=== PATIENT | female | born 1995 | race Caucasian/White ===

== ENCOUNTER 2016-12-04 08:42 | Emergency (ER) | payer OTHER ==
[~2016-12-04] VITALS: Ht 165.1 cm; Wt 81.6 kg
[~2016-12-04 08:42] MED LIST: FERRTAB2 PO; PREN1CAP7 PO; ZOLO50TA PO
[2016-12-04 09:41] LABS: BLOOD, URINE NEG (NEG); COMMENT (UR) CULT NOT INDICATED; CULTURE IF INDICATED CULT NOT INDICATED; GLUCOSE,URINE NEG (NEG); KETONE, URINE NEG (NEG); MUCUS URINE FEW /lpf (OCC); NITRITE,URINE NEG (NEG); SQUAMOUS EPITHELIAL CELL URINE <1 /hpf (0-5); URINE COLOR LIGHT-YELLOW (YELLW/STRAW)
--- NOTE | 2016-12-04 10:31 | PD ---
HPI Chief Complaint Nausea, vomiting, diarrhea Date Seen: December 04, 2016 Time Seen: 10:00 (Ada Quintanilla MD R2) Travel History International Travel<30 Days: No Contact w/Intl Traveler<30Days: No Known Affected Area: No (Ada Quintanilla MD R2) History of Present Illness HPI Pt is a 21 year old presenting at 34 weeks gestation due to nausea, vomiting and diarrhea. care is with Janice Valdivia. She reports hat she started to have diarrhea on Saturday, about 4 episodes per day. She has noticed bright red blood with wiping. Stools are light brown in color. She denies any recent travel, eating new foods, sick contacts. She attributes nausea to acid reflux. Denies any fevers or chills. Para: 1 : 2 (Ada Quintanilla MD R2) History Past Medical History Medical History: Denies Significant Hx (Ada Quintanilla MD R2) Obstetric History Obstetric History Primus E #1 Delivery via due to tachycardia (Ada Quintanilla MD R2) Past Surgical History Narrative Surgical 1 (Ada Quintanilla MD R2) Family History Family History: Negative (Ada Quintanilla MD R2) Social History Alcohol Use: No Tobacco Use: No Substance Abuse: No (Ada Quintanilla MD R2) Allergies-Medications (Allergen,Severity, Reaction): Coded Allergies: Flagyl (Verified Allergy, Severe, perfuse vomiting, 11/19/16) Home Meds Active Scripts Famotidine (Pepcid)20 Mg Tab20 Mg PO BID #60 TAB Ref 0 Prov:Ada Quintanilla MD R2 12/04/16 Multi-Vit/Iron-Folic Sdht-N83-Lmo C (Ferralet)90-1-0.012-120 mg Tab1 Tab PO DAILY #30 BOTTLE Ref 3 Prov:Patricia Briceño CNM [facility] 11/29/16 Sertraline (Zoloft)50 Mg Tab50 Mg PO DAILY #30 TAB Ref 5 Prov:Hina Sylvester 08/06/16 W/O Vit A W/ Fe Fumar (Citranatal [place])27-1-260 Mg Cap1 Cap PO DAILY #30 CAP Ref 11 Prov:Hina Sylvester 07/02/16 Review of Systems General / Constitutional: No: Fever HENT: No: Headaches Respiratory: No: Short of Breath Gastrointestinal: Nausea, Vomiting, Diarrhea, Abdominal Pain Genitourinary: No: Dysuria Skin: No Rash Psychiatric: No: Mood Disorder (Ada Quintanilla MD R2) Physical Exam Narrative GENERAL: Well-nourished, well-developed patient. SKIN: Warm and dry. HEAD: Normocephalic and atraumatic. EYES: No scleral icterus. No injection or drainage. ENT: No nasal drainage noted. Mucous membranes pink. Airway patent. NECK: Supple, trachea midline. No JVD. CARDIOVASCULAR: Regular rate and rhythm without murmurs, gallops, or rubs. RESPIRATORY: Breath sounds equal bilaterally. No accessory muscle use. ABDOMEN/GI: Abdomen soft, non-tender, bowel sounds present, no rebound, no guarding Gravid to 34 weeks size GENITOURINARY: External Genitalia: intact and normal in appearance Membranes: Intact Uterine Contractions: Absent External hemorrhoid about 2 cm in diameter. No rectal bleeding appreciated FHT's: Category: 1 Baseline: 130 Reactive: + Variability: Moderate Decels: Absent EXTREMITIES: No cyanosis or edema. BACK: Nontender without obvious deformity. No CVA tenderness. NEUROLOGICAL: Awake and alert. Motor and sensory grossly within normal limits. Five out of 5 muscle strength in all muscle groups. Normal speech. (Ada Quintanilla MD R2) Data Data Orders Vital Signs (Adult) .ON ADMISSION (12/04/16 09:14) ^ Labor Status (12/04/16 09:14) Urinalysis - C+S If Indicated (12/04/16 09:14) ^ Non Stress Test (12/04/16 09:14) ^ Hydration (12/04/16 09:14) Labs Laboratory Tests Test 12/04/16 09:15 Urine Color LIGHT-YELLOW Urine Turbidity CLEAR Urine pH 7.0 Urine Specific [place] 1.012 Urine Protein NEG Urine Glucose (UA) NEG Urine Ketones NEG Urine Occult Blood NEG Urine Nitrite NEG Urine Bilirubin NEG Urine Urobilinogen LESS THAN 2.0 Urine Leukocyte Esterase NEG Urine Squamous Epithelial <1 Cells Urine Mucus FEW Microscopic Urinalysis Comment CULT NOT INDICATED (Ada Quintanilla MD R2) MDM Medical Record Reviewed: Yes Interpretation(s) Pt is a 21 year old presenting at 34 weeks gestation due to nausea, vomiting and diarrhea. 1) IUP Category 1, reassuring UA with no signs of infection 2) Gastroenteritis Likely viral Pt encouraged to stay well hydrated and to take Imodium as needed for diarrhea Pt given prescription for Pepcid, electronically sent to pts pharmacy Follow up care for women as scheduled, earlier if symptoms persist and diarrhea does not resolve sdw Dr. Chi (Ada Quintanilla MD R2) Diagnosis Diagnosis: Primary Impression: Gastroenteritis Additional Impression: Normal Disposition: DISCHARGE HOME Condition: Stable Scripts Famotidine (Pepcid)20 Mg Tab20 Mg PO BID #60 TAB Ref 0 Prov:Ada Quintanilla MD R2 12/04/16 Collaborating MD Comments Agree with assessment and management. Patient will start pepcid for reflux symptoms. If diarrhea continued despite use of imodium patient will follow up with ob office for stool studies (Teagan Chi MD) Ada Quintanilla MD R2 December 04, 2016 10:31 Teagan Chi MD December 04, 2016 13:30
[2016-12-04] MEDS ORDERED: FAMO1TAB37 PO (10:49)
[2016-12-25] MEDS ORDERED: PROC2.5C RECTAL (15:46)
== END 2016-12-04 11:08 | disposition home or self-care (01) ==
LOC: HOBED 08:42
DX: O99.613 Diseases of the digestive system complicating pregnancy, third trimester (principal); K52.9 Noninfective gastroenteritis and colitis, unspecified; Z3A.34 34 weeks gestation of pregnancy
CPT/HCPCS: 81001; 99283

== ENCOUNTER 2016-12-22 09:37 | Emergency (ER) | payer OTHER ==
[~2016-12-22 09:37] MED LIST changes: +FAMO1TAB37 PO
--- NOTE | 2016-12-22 10:38 | PD ---
HPI Chief Complaint cramping Date Seen: Dec 22, 2016 Travel History International Travel<30 Days: No Contact w/Intl Traveler<30Days: No History of Present Illness HPI 21 yo @ 34w4d with ANDRE 01-29-2017. care with [facility]. with noted depression, currently on Zoloft. Patient presents today with c/o diarrhea x 2 this am and cramping. She reports 5-6 contractions in past hour. She currently denies nausea, vomiting and has been drinking fluids. She had not eaten this morning but does not have an appetite. She had a episode of gastroenteritis 2 weeks ago which resolved. No other complaints. She denies VB, LOF. +FM History Past Medical History Narrative Medical Depression Obstetric History Obstetric History for tachycardia/ pericardial effusion @ 35 weeks. resolved after delivery. pathology/placenta was normal. Past Surgical History Narrative Surgical Family History Family History: Negative Social History Alcohol Use: No Tobacco Use: No Substance Abuse: No Allergies-Medications (Allergen,Severity, Reaction): Coded Allergies: Flagyl (Verified Allergy, Severe, perfuse vomiting, 11/19/16) Home Meds Active Scripts Famotidine (Pepcid)20 Mg Tab20 Mg PO BID #60 TAB Ref 0 Prov:Ada Quintanilla MD R2 12/04/16 Multi-Vit/Iron-Folic Nvju-I22-Adc C (Ferralet)90-1-0.012-120 mg Tab1 Tab PO DAILY #30 BOTTLE Ref 3 Prov:Patricia Briceño CNM [facility] 11/29/16 Sertraline (Zoloft)50 Mg Tab50 Mg PO DAILY #30 TAB Ref 5 Prov:Hina Sylvester 08/06/16 W/O Vit A W/ Fe Fumar (Citranatal [place])27-1-260 Mg Cap1 Cap PO DAILY #30 CAP Ref 11 Prov:Hina SylvesterP 07/02/16 Review of Systems General / Constitutional: No: Fever, Chills Eyes: No: Blurred Vision, Pain HENT: No: Headaches, Lightheadedness Cardiovascular: No: Chest Pain or Discomfort, Palpitations Respiratory: No: Cough, Short of Breath Gastrointestinal: Diarrhea, Abdominal Pain, Changes in Bowel Habits, Loss of Appetite, No: Nausea, Vomiting, Indigestion Genitourinary: No: Urgency, Frequency, Dysuria, Vaginal Bleeding Musculoskeletal: No: Limited ROM, Weakness, Edema Skin: No Rash, No Itching, No Lesions Neurologic: No: Focal Abnormalities, Coordination Problem Physical Exam Vital Signs Date Time Temp Pulse Resp B/P Pulse Ox O2 Delivery O2 Flow Rate FiO2 12/22/16 12:36 92 126/68 12/22/16 12:15 66 120/53 Narrative GENERAL: Well-nourished, well-developed patient. SKIN: Warm and dry. HEAD: Normocephalic and atraumatic. EYES: No scleral icterus. No injection or drainage. ENT: No nasal drainage noted. Mucous membranes pink. Airway patent. NECK: trachea midline. No JVD. CARDIOVASCULAR: Regular rate. VSS. RESPIRATORY: No accessory muscle use. ABDOMEN/GI: Abdomen soft, non-tender, no rebound, no guarding Gravid Patient Discomfort with UC - Uterine contraction palpated mild, uterus non- tender TOCO: Occasional UC GENITOURINARY: External Genitalia: intact and normal in appearance SVE: closed/thick/high FHT's: Category: I Baseline: 120 Reactive: +accelerations Variability: mod Decels: [-] EXTREMITIES: No cyanosis or edema. BACK: Nontender without obvious deformity. Normal ROM NEUROLOGICAL: Awake and alert. Motor and sensory grossly within normal limits. Normal speech. Repeat exam: CAT I FHT VSS, afebrile TOCO: irritability SVE closed/thick/high no change Data Data Vital Signs Reviewed: Yes Orders Vital Signs (Adult) .ON ADMISSION (12/22/16 10:29) ^ Labor Status (12/22/16 10:29) Urinalysis - C+S If Indicated (12/22/16 10:29) ^ Non Stress Test (12/22/16 10:29) ^ Hydration (12/22/16 10:29) Labs Laboratory Tests Test 12/22/16 09:55 Urine Color YELLOW (YELLW/STRAW) Urine Turbidity CLEAR (CLEAR) Urine pH 6.5 (5.0-8.5) Urine Specific [place] 1.014 (1.002-1.035) Urine Protein TRACE mg/dL (NEG-TRACE) Urine Glucose (UA) NEG mg/dL (NEG) Urine Ketones TRACE mg/dL (NEG) Urine Occult Blood NEG (NEG) Urine Nitrite NEG (NEG) Urine Bilirubin NEG (NEG) Urine Urobilinogen LESS THAN 2.0 MG/DL (LESS THAN 2.0) Urine Leukocyte Esterase NEG (NEG) Urine RBC LESS THAN 1 /hpf (0-3) Urine WBC 1 /hpf (0-5) Urine Squamous Epithelial 1 /hpf (0-5) Cells Urine Bacteria RARE /hpf (NONE) Urine Mucus FEW /lpf (OCC) Microscopic Urinalysis Comment CULT NOT INDICATED MDM Narrative Course / MDM 34 weeks Diarrhea with mild dehydration Irregular UC without cervical change or labor FHT CAT I, prolonged monitoring UA noting ketones, no evidence of infection IV and oral hydration Terbutaline given for painful but irregular UC/irritability x 2 Plan D/c home Precautions given for UC Pelvic and GI rest Reviewed bland diet and oral hydration Vistaril given for rest this afternoon Has f/u JORGE on Saturday Diagnosis Diagnosis: Primary Impression: , GI problems Qualified Code: O26.893 - , GI problems, third trimester Additional Impressions: Diarrhea Qualified Code: R19.7 - Diarrhea, unspecified type Dehydration uterine contractions in third trimester, antepartum Disposition: DISCHARGE HOME Condition: Good Ashlee Christensen MD Dec 22, 2016 10:38
[2016-12-22 10:40] LABS: BACTERIA, URINE RARE /hpf; BLOOD, URINE NEG (NEG); COMMENT (UR) CULT NOT INDICATED; CULTURE IF INDICATED CULT NOT INDICATED; GLUCOSE,URINE NEG (NEG); KETONE, URINE TRACE mg/dL (NEG); MUCUS URINE FEW /lpf (OCC); NITRITE,URINE NEG (NEG); PH, URINE 6.5 (5.0-8.5); SQUAMOUS EPITHELIAL CELL URINE 1 /hpf (0-5); URINE COLOR YELLOW (YELLW/STRAW)
[2016-12-22] MEDS ORDERED: LACTATED RINGER'S 1000 ML INJ 1,000 ML IV ONE (11:30)
[2016-12-22] MEDS ORDERED: TERBUTALINE INJ 1 MG/ML AMP ONE (12:13)
[2016-12-22 12:15] VITALS: BP 120/53; PULSE 66
[2016-12-22] MEDS ORDERED: TERBUTALINE INJ 1 MG/ML AMP SQ ONE ×2 (12:15→12:45)
[2016-12-22 12:36] VITALS: BP 126/68; PULSE 92
[2016-12-25] MEDS ORDERED: PROC2.5C RECTAL (15:46)
== END 2016-12-22 13:30 | disposition home or self-care (01) ==
LOC: HOBED 09:37
DX: R19.7 Diarrhea, unspecified (principal); O26.893 Other specified pregnancy related conditions, third trimester; E86.0 Dehydration; Z3A.34 34 weeks gestation of pregnancy
CPT/HCPCS: 59025; 81001; 96372; 99284; J3105; J7120

== ENCOUNTER 2017-01-21 09:20 | Inpatient (IN) | payer OTHER ==
[~2017-01-21] VITALS: Ht 162.6 cm; Wt 84.0 kg
[~2017-01-21 09:20] MED LIST changes: +PROC2.5C RECTAL
[2017-01-23] VITALS (17 sets, daily range): BP systolic 97–118; BP diastolic 50–67; PULSE 53–90; RESP 16–19; TEMP 97.5–98.2; O2SAT 96–99
[2017-01-23] MEDS ORDERED: SODIUM CHLORIDE 0.9% FLUSH 5 ML FLUSH ONE (09:37)
[2017-01-23] MEDS ORDERED: LACTATED RINGER'S 1000 ML INJ 1,000 ML IV ONE (10:02)
[2017-01-23 10:29] LABS: AUTOMATED NEUTROPHIL # 6.5 TH/MM3 (1.8-7.7); BASOPHIL # 0.1 TH/MM3 (0-0.2); BASOPHIL % 0.8 % (0.0-2.0); EOSINOPHIL # 0.1 TH/MM3 (0-0.4); EOSINOPHIL % 0.8 % (0.0-4.0); HEMO FLAGS DIFF FINAL; LYMPH % 14.3 % (9.0-44.0); LYMPHOCYTE # 1.2 TH/MM3 (1.0-4.8); MEAN CELL VOLUME 71.5 FL (80.0-100.0); MEAN CORPUSCULAR HEMOGLOBIN 22.5 PG (27.0-34.0); MEAN CORPUSCULAR HGB CONC 31.5 % (32.0-36.0); MONO % 9.1 % (0.0-8.0); PLATELET COUNT 181 TH/MM3 (150-450); RED CELL DISTRIBUTION WIDTH 17.5 % (11.6-17.2); WHITE BLOOD COUNT 8.7 TH/MM3 (4.0-11.0)
[2017-01-23] MEDS ORDERED: LACTATED RINGER'S 1000 ML INJ 1,000 ML IV SCH ×2 (10:32→17:15)
[2017-01-23 10:36] LABS: BACTERIA, URINE OCC /hpf; BLOOD, URINE NEG (NEG); GLUCOSE,URINE NEG (NEG); HYALINE CAST, URINE 1 /lpf (RARE); KETONE, URINE NEG (NEG); NITRITE,URINE NEG (NEG); SQUAMOUS EPITHELIAL CELL URINE 1 /hpf (0-5); URINE COLOR LIGHT-YELLOW (YELLW/STRAW)
[2017-01-23 10:40] LABS: COMMENT (UR) CULT NOT INDICATED; CULTURE IF INDICATED CULT NOT INDICATED
[2017-01-23] MEDS ORDERED: OXYTOCIN 10 UNIT/ML AMP ONE (10:40)
[2017-01-23] MEDS ORDERED: IRONTAB5 PO (10:46)
--- NOTE | 2017-01-23 10:49 | HHI.HP ---
HPI Chief Complaint Repeat C/S Date Seen: Jan 23, 2017 Time Seen: 10:45 (Walt Queen MD R1) Travel History International Travel<30 Days: No Contact w/Intl Traveler<30Days: No (Walt Queen MD R1) History of Present Illness HPI 21-year-old at 39 weeks gestation presenting for repeat . She currently has no somatic concerns. Denies chest pain, shortness of breath, abdominal pain, vaginal bleeding, leakage of fluid, contractions. (Walt Queen MD R1) History Past Medical History Medical History: Denies Significant Hx (Walt Queen MD R1) Obstetric History Obstetric History First baby delivered by for tachycardia (Walt Queen MD R1) Past Surgical History Narrative Surgical No surgeries other than previous (Walt Queen MD R1) Family History Family History: Negative (Walt Queen MD R1) Social History Alcohol Use: No Tobacco Use: No Substance Abuse: No (Walt Queen MD R1) Allergies-Medications (Allergen,Severity, Reaction): Coded Allergies: Flagyl (Verified Allergy, Severe, perfuse vomiting, AFFECTS GALLBLADDER, INTESTINES AND LIVER, 01/23/17) Home Meds Active Scripts Multi-Vit/Iron-Folic Zmdn-U47-Wog C (Ferralet)90-1-0.012-120 mg Tab1 Tab PO DAILY #30 BOTTLE Ref 3 Prov:Patricia Briceño CNM [facility] 11/29/16 Reported Medications [Iron] No Conflict Check1 Tab PO DAILY 01/23/17 Discontinued Scripts Hydrocortisone Rectal 2.5% (Proctosol Hc 2.5%)2.5% Cream1 Applic RECTAL BID PRN (PAIN/INFLAMMATION) #1 TUBE Ref 2 Prov:Hina Sylvester 12/25/16 Famotidine (Pepcid)20 Mg Tab20 Mg PO BID #60 TAB Ref 0 Prov:Ada Quintanilla MD R2 12/04/16 Sertraline (Zoloft)50 Mg Tab50 Mg PO DAILY #30 TAB Ref 5 Prov:Hina Sylvester 08/06/16 W/O Vit A W/ Fe Fumar (Citranatal [place])27-1-260 Mg Cap1 Cap PO DAILY #30 CAP Ref 11 Prov:Hina SylvesterLuli LINING FINISHER 07/02/16 Review of Systems Except as stated in HPI: all other systems reviewed are Neg (Walt Queen MD R1) Physical Exam Vital Signs Date Time Temp Pulse Resp B/P Pulse Ox O2 Delivery O2 Flow Rate FiO2 01/23/17 10:35 74 01/23/17 10:30 71 01/23/17 10:00 97.6 01/23/17 10:00 19 01/23/17 09:55 81 01/23/17 09:54 84 118/62 01/23/17 09:50 81 01/23/17 09:45 82 Narrative GENERAL: Well-nourished, well-developed patient. SKIN: Warm and dry. HEAD: Normocephalic and atraumatic. EYES: No scleral icterus. No injection or drainage. ENT: No nasal drainage noted. Mucous membranes pink. Airway patent. NECK: Supple, trachea midline. No JVD. CARDIOVASCULAR: Regular rate and rhythm without murmurs, gallops, or rubs. RESPIRATORY: Breath sounds equal bilaterally. No accessory muscle use. BREASTS: Bilateral exam showed no masses , no retractions, no nipple discharge. ABDOMEN/GI: Abdomen soft, non-tender, bowel sounds present, no rebound, no guarding GENITOURINARY: Exam deferred FHT's: Category: 1 Baseline: 120 Reactive: Y Variability: moderate Decels: none EXTREMITIES: No cyanosis or edema. BACK: Nontender without obvious deformity. No CVA tenderness. NEUROLOGICAL: Awake and alert. Motor and sensory grossly within normal limits. Normal speech. (Walt Queen MD R1) Data Data Orders Sodium Chloride 0.9% Flush (Ns Flush) (01/23/17 09:37) Admit To Inpatient (01/23/17 ) Vital Signs (Adult) .ON ADMISSION (01/23/17 10:02) Activity Oob Ad Yolande (01/23/17 10:02) Heart (01/23/17 10:02) Urinary Catheter Management MIMA.Q8H (01/23/17 10:02) ^ Preps (01/23/17 10:02) Scd / Jose De Jesus / Foot Pump MIMA.QSHIFT (01/23/17 10:02) ^ Ultrasound For Locatio (01/23/17 10:02) Diet Npo (01/23/17 Lunch) Lactated Ringer's 1000 Ml Inj (Lr 1000 M (01/23/17 10:02) Lactated Ringer's 1000 Ml Inj (Lr 1000 M (01/23/17 10:32) Cefazolin 2 Gm Premix (Ancef 2 Gm Premix (01/23/17 11:15) Citric Acid-Sodium Citrate Liq (Bicitra (01/23/17 11:45) Type And Screen (01/23/17 10:02) Complete Blood Count With Diff (01/23/17 10:02) Urinalysis - C+S If Indicated (01/23/17 10:02) Inpatient Certification (01/23/17 ) Specimen To Be Collected PRN (01/23/17 10:02) Oxytocin Inj (Pitocin Inj) (01/23/17 10:40) Labs Laboratory Tests Test 01/23/17 09:55 White Blood Count 8.7 Red Blood Count 4.20 Hemoglobin 9.4 Hematocrit 30.0 Mean Corpuscular Volume 71.5 Mean Corpuscular Hemoglobin 22.5 Mean Corpuscular Hemoglobin 31.5 Concent Red Cell Distribution Width 17.5 Platelet Count 181 Mean Platelet Volume 9.4 Neutrophils (%) (Auto) 75.0 Lymphocytes (%) (Auto) 14.3 Monocytes (%) (Auto) 9.1 Eosinophils (%) (Auto) 0.8 Basophils (%) (Auto) 0.8 Neutrophils # (Auto) 6.5 Lymphocytes # (Auto) 1.2 Monocytes # (Auto) 0.8 Eosinophils # (Auto) 0.1 Basophils # (Auto) 0.1 CBC Comment DIFF FINAL Differential Comment Urine Color LIGHT-YELLOW Urine Turbidity CLEAR Urine pH 7.0 Urine Specific [place] 1.011 Urine Protein NEG Urine Glucose (UA) NEG Urine Ketones NEG Urine Occult Blood NEG Urine Nitrite NEG Urine Bilirubin NEG Urine Urobilinogen LESS THAN 2.0 Urine Leukocyte Esterase SMALL Urine RBC LESS THAN 1 Urine WBC LESS THAN 1 Urine Squamous Epithelial 1 Cells Urine Bacteria OCC Urine Hyaline Casts 1 Microscopic Urinalysis Comment CULT NOT INDICATED (Walt Queen MD R1) Assessment/Plan Assessment and Plan 21-year-old at 39 weeks presenting for repeat #1 IUP Category 1 tracing, reassuring - monitoring prior to delivery #2 repeat GBS positive, membranes intact - Ancef 2 g prior to surgery - Routine preoperative care dw Dr. Ram (Walt Queen MD R1) Attending Attestation The exam, history, and the medical decision-making described in the above note were completed with the assistance of the resident provider. I reviewed and agree with the findings presented. I attest that I had a [id number] encounter with the patient on the same day, and personally performed and documented my assessment and findings in the medical record. Risks of repeat were reviewed with patient in detail including but not limited to pain, bleeding, infection, injury to blood vessels, nerves, bladder, ureters, bowel. All questions were answered, and consent forms were signed. ( Bailey Ram MD) Walt Queen MD R1 Jan 23, 2017 10:49 Bailey Ram MD Jan 23, 2017 13:50
[2017-01-23] MEDS ORDERED: EPIDURAL-DO NOT ADMINISTER ANTICOAGULANTS PRN (11:05)
[2017-01-23] MEDS ORDERED: EPIDURAL-NALOXONE HCL 0.4 MG/ML AMP IV PRN (11:05)
[2017-01-23] MEDS ORDERED: EPIDURAL-DIPHENHYDRAMINE HCL 50 MG CAP PO PRN (11:05)
[2017-01-23] MEDS ORDERED: EPIDURAL-DIPHENHYDRAMINE HCL 50 MG/ML VIAL IV PUSH PRN (11:05)
[2017-01-23] MEDS ORDERED: EPIDURAL-NO SYSTEMIC NARCOTICS PRN (11:05)
[2017-01-23] MEDS ORDERED: ceFAZolin 2 GM PREMIX 50 ML IV SCH (11:15)
[2017-01-23] MEDS ORDERED: CITRIC ACID-SODIUM CITRATE LIQ 30 ML UDC PO SCH (11:45)
[2017-01-23] MEDS ORDERED: KETOROLAC TROMETHAMINE 60 MG/2 ML (IM) VIAL IM PRN (12:15)
[2017-01-23] MEDS ORDERED: ONDANSETRON HCL 4 MG/2 ML VIAL IV PUSH PRN (12:15)
[2017-01-23] MEDS ORDERED: DOCUSATE SODIUM 50 MG/SENNA 8.6 MG TAB PO PRN (12:15)
[2017-01-23] MEDS ORDERED: SODIUM CHLORIDE 0.9% FLUSH 10 ML FLUSH IV FLUSH PRN (12:15)
[2017-01-23] MEDS ORDERED: SIMETHICONE 80 MG CHEWABLE TAB PO PRN (12:15)
[2017-01-23] MEDS ORDERED: OXYTOCIN 30 UNITS-500ML PREMIX 500 ML IV ONE (12:15)
[2017-01-23] MEDS ORDERED: MORPHINE SULFATE PF 5 MG/10 ML VIAL ONE (12:21)
[2017-01-23] MEDS ORDERED: OXYTOCIN 30 UNITS-500ML PREMIX 500 ML ONE (12:32)
--- NOTE | 2017-01-23 14:17 | MP ---
cc: BAILEY RAM MD DATE OF SURGERY: 01/23/2017 DATE OF : 1995 PREOPERATIVE DIAGNOSIS 1. Intrauterine at 39-weeks and 1 day. 2. Previous delivery, desires elective repeat. POSTOPERATIVE DIAGNOSIS 1. Intrauterine at 39-weeks and 1 day. 2. Previous delivery, desires elective repeat. PROCEDURE 1. Repeat low transverse delivery. SURGEON Dr. Bailey Ram. STATE AUDITOR heating repair technician. ANESTHESIA Spinal. IV FLUIDS 1800 ccs lactated Ringers. URINE OUTPUT 200 ccs clear yellow urine. ESTIMATED BLOOD LOSS 750 ccs. DRAINS Read to gravity. COMPLICATIONS None. INDICATION The patient is a 21-year-old, 2, para 1 with intrauterine at 39-weeks and 1 day, who presents for an elective repeat delivery. Risks, benefits and alternatives were reviewed with the patient in detail and informed consent was signed. SURGICAL FINDINGS 1. Normal female pelvic anatomy. 2. Male in clear amniotic fluid. 3. Time of delivery: 11:31 a.m. 4. Apgars: 9 and 9. 5. weight: 3550 grams. 6. Intact placenta with three vessel cord. 7. Hemostasis at completion of procedure. SURGICAL SPECIMEN None. PREOPERATIVE ANTIBIOTICS Ancef 2 grams IV. PROCEDURE IN DETAIL After risks, benefits and alternatives of the procedure were reviewed in detail an informed consent was verified, the patient was taken to the operating room where spinal anesthesia was administered by the anesthesia team. SCD hose were placed on the patient's lower extremities and a Read catheter was inserted under sterile conditions. The patient was then prepped and draped in a normal sterile fashion in the dorsal supine position with a left-gonzalez tilt. Timeout procedure was then performed per protocol. Anesthesia was tested and found to be adequate. A Pfannenstiel skin incision was made with a scalpel and carried down to the underlying fascia. The fascia was incised on either side of the midline and the incision was extended laterally with the Beavers scissors. The superior aspect of the fascial incision was grasped with Yao clamps and the rectus muscles were dissected off bluntly and sharply. This was repeated along the inferior aspect of the fascial incision. The rectus muscles were in the midline, underlying peritoneum was entered bluntly. The incision was stretched manually. A bladder blade was placed. Bladder flap was created with Metzenbaum scissors and blunt dissection. The bladder blade was replaced over the bladder flap. An incision was made in the lower uterine segment. Once membranes were visualized the incision was extended with the index fingers. Amniotic bag was ruptured revealing clear fluid. The 's head was then elevated out of the incision with upward traction and fundal pressure. The mouth and nose were bulb suctioned. The body easily followed with gentle traction. After 45 second delay the cord was clamped and cut and the infant was handed off to the waiting team. The placenta was delivered with fundal massage. The uterus was then exteriorized and cleared of all clots and debris. The uterine incision was repaired with #1 Chromic in a running locked fashion. The bladder flap was closed with 2-0 Chromic in a running fashion. There was a small hematoma along the right upper edge of the incision. One maglmt-tt-droam suture of #1 Chromic was placed to tamponade the area. The incision was re-inspected and excellent hemostasis was noted. The posterior cul-de-sac was then irrigated and suctioned. The uterus was returned to the abdomen. The gutters were irrigated and suctioned. The incision was irrigated, suctioned and re-inspected. Hemostasis was noted. Four pieces of Seprafilm were placed over the uterine fundus and the uterine incision. The rectus muscles were loosely reapproximated over the midline with one suture of #1 Chromic. The fascia was then closed with #1 Vicryl in a running fashion. The subcutaneous tissue was irrigated and coagulated. The subcutaneous space was closed with interrupted sutures of 2-0 Vicryl. The skin was then closed with 4-0 Monocryl in a subcuticular fashion. Abdominal dressing was placed. The patient tolerated the procedure well. Sponge, lap, needle, instrument counts were reported as correct x 3. The patient was transported to the recovery room with her in stable condition. Brittny Shine /12:27 PM /1:41 PM
[2017-01-23] MEDS: KETOROLAC TROMETHAMINE 60 MG/2 ML (IM) VIAL IM PRN (17:33)
[2017-01-23] MEDS ORDERED: SODIUM CHLORIDE 0.9% FLUSH 10 ML FLUSH IV FLUSH SCH (21:00)
[2017-01-23] MEDS: oxyCODONE/ACETAMINOPHEN 5 MG/325 MG TAB PO PRN (21:23)
[2017-01-23] MEDS ORDERED: OXYTOCIN 30 UNITS-500ML PREMIX 500 ML IV PRN (22:15)
[2017-01-24] MEDS: oxyCODONE/ACETAMINOPHEN 5 MG/325 MG TAB PO PRN ×6 (01:33→23:47)
[2017-01-24] MEDS: KETOROLAC TROMETHAMINE 60 MG/2 ML (IM) VIAL IM PRN (01:34)
[2017-01-24 04:05] VITALS: BP 99/55; PULSE 72; RESP 18; TEMP 97.6
[2017-01-24 06:04] LABS: BASOPHIL % 0.2 % (0.0-2.0); EOSINOPHIL % 0.4 % (0.0-4.0); HEMATOCRIT 23.1 % (35.0-46.0); HEMO FLAGS DIFF FINAL; LYMPH % 8.8 % (9.0-44.0); MEAN CELL VOLUME 72.5 FL (80.0-100.0); MEAN CORPUSCULAR HEMOGLOBIN 22.8 PG (27.0-34.0); MEAN CORPUSCULAR HGB CONC 31.4 % (32.0-36.0); MONO % 7.7 % (0.0-8.0); NEUT % 82.9 % (16.0-70.0); PLATELET COUNT 118 TH/MM3 (150-450); RED BLOOD COUNT 3.19 MIL/MM3 (4.00-5.30); RED CELL DISTRIBUTION WIDTH 17.7 % (11.6-17.2); WHITE BLOOD COUNT 10.9 TH/MM3 (4.0-11.0)
[2017-01-24 08:00] VITALS: BP 105/62; PULSE 70; RESP 18; TEMP 97.6
[2017-01-24] MEDS: IBUPROFEN 600 MG TAB PO PRN ×3 (09:19→19:36)
--- NOTE | 2017-01-24 11:18 | HHI.OB ---
Subjective Post Operative Day: 1 Remarks 21 year old female s/p repeat C/S at 39 wks gestation, POD 1. AFVSS. Patient reports she is feeling well. Bleeding is decreasing and pain is well- controlled. She is breast feeding and bonding well with baby. Ambulating without difficulties. She is tolerating a diet without nausea or vomiting. She has not had a bowel movement. She has passed gas. Denies chest pain, dysuria, shortness of breath, or calf pain. Objective Vitals/I&O Vital Signs Date Time Temp Pulse Resp B/P Pulse Ox O2 Delivery O2 Flow Rate FiO2 01/24/17 08:00 97.6 70 18 105/62 01/24/17 04:05 97.6 72 18 99/55 01/23/17 23:00 62 105/55 01/23/17 23:00 98.0 01/23/17 19:20 97.9 90 16 112/54 96 01/23/17 19:20 18 01/23/17 17:40 113/61 01/23/17 17:40 97.6 67 18 01/23/17 13:35 97.5 53 16 107/67 01/23/17 12:53 18 01/23/17 12:46 64 99 01/23/17 12:45 104/51 01/23/17 12:44 68 17 113/60 01/23/17 12:18 62 19 97/50 98 01/23/17 12:15 97.6 17 99 01/23/17 12:15 65 110/55 Result Diagram: 01/24/17 0514 Objective Remarks GENERAL: Well-nourished, well-developed patient. CARDIOVASCULAR: Regular rate and rhythm without murmurs, gallops, or rubs. RESPIRATORY: Breath sounds equal bilaterally. No accessory muscle use. ABDOMEN/GI: Abdomen soft, non-tender, bowel sounds present. Incision: Covered with bandage, but appearing clean and dry. Fundus: Firm, non-tender at umbilicus. GENITOURINARY: Light to moderate bleeding. EXTREMITIES: No cyanosis or edema, non-tender, without signs of DVT. Medications and IVs Current Medications Medications (Trade) Dose Ordered Sig/Dalila Route Start Time Stop Time Status Last Admin Lactated Ringer's 1,000 ml @ 150 mls/hr Q6H40M IV 01/23/17 10:32 01/23/17 10:34 (Lr 1000 ml Inj) 1,000 ml @ 100 mls/hr Q10H IV 01/23/17 17:15 01/24/17 13:14 (NS Flush) 2 ml BID IV FLUSH 01/23/17 21:00 (NS Flush) 2 ml UNSCH PRN IV FLUSH 01/23/17 12:15 (Mylicon Chew) 80 mg QID PRN PO 01/23/17 12:15 (Motrin) 600 mg Q6H PRN PO 01/23/17 12:15 01/24/17 09:19 (Toradol Inj) 30 mg Q6H PRN IM 01/23/17 18:00 01/24/17 17:59 01/24/17 01:34 (Percocet 5-325 Mg) 1 tab Q4H PRN PO 01/23/17 12:15 01/24/17 06:23 (Percocet 5-325 Mg) 2 tab Q4H PRN PO 01/23/17 12:15 01/24/17 10:58 (Melissa-Colace) 2 tab Q12H PRN PO 01/23/17 12:15 01/24/17 09:19 (M-M-R Ii Inj) 0.5 ml ONCE ONCE SQ 01/24/17 16:00 01/24/17 16:01 (Boostrix Inj) 0.5 ml ONCE ONCE IM 01/24/17 16:00 01/24/17 16:01 01/24/17 09:21 (Zofran Inj) 4 mg Q6H PRN IV PUSH 01/23/17 12:15 Assessment/Plan Assessment and Plan 21 yo female s/p repeat C/S POD 1. - AFVSS - Continue routine care - Motrin and Percocet PRN pain - Encourage OOB - Pelvic rest x 6 wks. - Contraception: Undetermined - Anticipate D/C 01/25 or 01/26 Walt Queen MD R1 Jan 24, 2017 11:18
--- NOTE | 2017-01-24 15:19 | HHI.OB ---
Subjective Post Operative Day: 1 Remarks AF VSS c/o wound drainage today Exam- left side of wound draining watery discharge no pus , incision line intact but wet [ on left] Q tip used to push thru the incision and drain some , fascia intact remaining incision intact and dry on right Recommend bid Q tip with H2O2 cleaning and 4 by 4 to cover , if drainage increases then thin iodoform gauze packing with change bid Objective Vitals/I&O Vital Signs Date Time Temp Pulse Resp B/P Pulse Ox O2 Delivery O2 Flow Rate FiO2 01/24/17 08:00 97.6 70 18 105/62 01/24/17 04:05 97.6 72 18 99/55 01/23/17 23:00 62 105/55 01/23/17 23:00 98.0 01/23/17 19:20 97.9 90 16 112/54 96 01/23/17 19:20 18 01/23/17 17:40 113/61 01/23/17 17:40 97.6 67 18 Result Diagram: 01/24/17 0514 Objective Remarks GENERAL: Well-nourished, well-developed patient. CARDIOVASCULAR: Regular rate and rhythm without murmurs, gallops, or rubs. RESPIRATORY: Breath sounds equal bilaterally. No accessory muscle use. ABDOMEN/GI: Abdomen soft, non-tender, bowel sounds present. Incision: Covered with bandage, but appearing clean and dry. Fundus: Firm, non-tender at umbilicus. GENITOURINARY: Light to moderate bleeding. EXTREMITIES: No cyanosis or edema, non-tender, without signs of DVT. Medications and IVs Current Medications Medications (Trade) Dose Ordered Sig/Dalila Route Start Time Stop Time Status Last Admin (Lr 1000 ml Inj) 1,000 ml @ 150 mls/hr Q6H40M IV 01/23/17 10:32 01/23/17 10:34 (NS Flush) 2 ml BID IV FLUSH 01/23/17 21:00 (NS Flush) 2 ml UNSCH PRN IV FLUSH 01/23/17 12:15 (Mylicon Chew) 80 mg QID PRN PO 01/23/17 12:15 (Motrin) 600 mg Q6H PRN PO 01/23/17 12:15 01/24/17 15:11 (Toradol Inj) 30 mg Q6H PRN IM 01/23/17 18:00 01/24/17 17:59 01/24/17 01:34 (Percocet 5-325 Mg) 1 tab Q4H PRN PO 01/23/17 12:15 01/24/17 06:23 (Percocet 5-325 Mg) 2 tab Q4H PRN PO 01/23/17 12:15 01/24/17 15:11 (Melissa-Colace) 2 tab Q12H PRN PO 01/23/17 12:15 01/24/17 09:19 (M-M-R Ii Inj) 0.5 ml ONCE ONCE SQ 01/24/17 16:00 01/24/17 16:01 (Boostrix Inj) 0.5 ml ONCE ONCE IM 01/24/17 16:00 01/24/17 16:01 01/24/17 09:21 (Zofran Inj) 4 mg Q6H PRN IV PUSH 01/23/17 12:15 Assessment/Plan Assessment and Plan 21 yo female s/p repeat C/S POD 1. - AFVSS - Continue routine care - Motrin and Percocet PRN pain - Encourage OOB - Pelvic rest x 6 wks. - Contraception: Undetermined - Anticipate D/C 01/25 or 01/26 Nura Oliva II, MD Jan 24, 2017 15:19
[2017-01-24] MEDS ORDERED: MEASLES, MUMPS, RUBELLA VACCINE 0.5 ML VIAL SQ ONE (16:00)
[2017-01-24] MEDS ORDERED: DIPHTH/TETANUS/ACEL PERTUSSIS (BOOSTER) 0.5 ML VIAL/PFS IM ONE (16:00)
[2017-01-24 19:20] VITALS: BP 115/66; PULSE 70; RESP 20; TEMP 98.6
[2017-01-25] MEDS: IBUPROFEN 600 MG TAB PO PRN ×2 (01:42→07:32)
[2017-01-25] MEDS: oxyCODONE/ACETAMINOPHEN 5 MG/325 MG TAB PO PRN ×2 (03:32→07:33)
[2017-01-25 06:00] LABS: HEMATOCRIT 21.6 % (35.0-46.0); MEAN CELL VOLUME 71.3 FL (80.0-100.0); MEAN CORPUSCULAR HEMOGLOBIN 23.3 PG (27.0-34.0); MEAN CORPUSCULAR HGB CONC 32.6 % (32.0-36.0); PLATELET COUNT 136 TH/MM3 (150-450); RED BLOOD COUNT 3.03 MIL/MM3 (4.00-5.30); REVIEW FLAG FINAL; WHITE BLOOD COUNT 10.1 TH/MM3 (4.0-11.0)
[2017-01-25 07:30] VITALS: BP 111/68; PULSE 70; RESP 18; TEMP 97.5
[2017-01-25] MEDS ORDERED: OXYC1TAB63 PO (08:31)
[2017-01-25] MEDS ORDERED: IBUP-232 PO (08:31)
--- NOTE | 2017-01-25 08:32 | HHI.DCPOC ---
Discharge Care Plan Diagnosis: (1) delivery delivered Report Symptoms to Your Doctor -Temperature above 100.5 degrees -Redness, of incision or excessive or foul smelling drainage -Unusual pain or calf pain -Increased vaginal bleeding -Painful or difficulty urinating -Feelings of extreme sadness or anxiety after 2 weeks Goals to Promote Your Health * To prevent worsening of your condition and complications * To maintain your health at the optimal level Directions to Meet Your Goals Take your medications as prescribed Follow your dietary instruction Follow activity as directed Ensure plenty of rest for recovery Drink fluids for hydration Keep your appointments as scheduled Take your immunizations and boosters as scheduled If your symptoms worsen call your PCP, if no PCP go to Urgent Care Center or Emergency Room Smoking is Dangerous to Your Health. Avoid second hand smoke Call the 24-hour crisis hotline for domestic abuse at Jaime Acevedo MD R1 Jan 25, 2017 08:32
[2017-01-25] MEDS ORDERED: CEPH500C PO (08:52)
--- NOTE | 2017-01-25 09:40 | HHI.OB ---
Subjective Post Operative Day: 2 Remarks 21 year old female s/p repeat C/S at 39/1 wks gestation, POD 2. AFVSS. Patient reports she is feeling well. Bleeding is decreasing and pain is well- controlled. She is breast feeding and bonding well with baby. Ambulating without difficulties. She is tolerating a diet without nausea or vomiting. She has had a bowel movement. She has passed gas. Denies chest pain, dysuria, shortness of breath, or calf pain. Objective Vitals/I&O Vital Signs Date Time Temp Pulse Resp B/P Pulse Ox O2 Delivery O2 Flow Rate FiO2 01/25/17 07:30 97.5 70 18 01/25/17 07:30 111/68 01/24/17 20:36 20 01/24/17 20:36 20 01/24/17 19:20 115/66 01/24/17 19:20 98.6 70 20 Result Diagram: 01/25/17 0448 Objective Remarks GENERAL: Well-nourished, well-developed patient. CARDIOVASCULAR: Regular rate and rhythm without murmurs, gallops, or rubs. RESPIRATORY: Breath sounds equal bilaterally. No accessory muscle use. ABDOMEN/GI: Abdomen soft, non-tender, bowel sounds present. Incision: Clean, dry, intact. Mild (< 1 tsp) dried serosanginous drainage on bandaging. Fundus: Firm, non-tender at umbilicus. GENITOURINARY: Light to moderate bleeding. EXTREMITIES: No cyanosis or edema, non-tender, without signs of DVT. Medications and IVs Current Medications Medications (Trade) Dose Ordered Sig/Dalila Route Start Time Stop Time Status Last Admin (Lr 1000 ml Inj) 1,000 ml @ 150 mls/hr Q6H40M IV 01/23/17 10:32 01/23/17 10:34 (NS Flush) 2 ml BID IV FLUSH 01/23/17 21:00 (NS Flush) 2 ml UNSCH PRN IV FLUSH 01/23/17 12:15 (Mylicon Chew) 80 mg QID PRN PO 01/23/17 12:15 (Motrin) 600 mg Q6H PRN PO 01/23/17 12:15 01/25/17 07:32 (Percocet 5-325 Mg) 1 tab Q4H PRN PO 01/23/17 12:15 01/24/17 06:23 (Percocet 5-325 Mg) 2 tab Q4H PRN PO 01/23/17 12:15 01/25/17 07:33 (Melissa-Colace) 2 tab Q12H PRN PO 01/23/17 12:15 01/24/17 09:19 (Zofran Inj) 4 mg Q6H PRN IV PUSH 01/23/17 12:15 Assessment/Plan Problem List: (1) delivery delivered Assessment and Plan 21 yo female s/p repeat C/S POD 2. - AFVSS - Continue routine care - Motrin and Percocet PRN pain - Encourage OOB - Pelvic rest x 6 wks. Will need incision check in 1 week - Due to drainage from wound, will cover prophylactically with cephalexin 500 mg every 8 hours for 5 days - Contraception: Undetermined - Discharge home today Walt Queen MD R1 Jan 25, 2017 09:40
== END 2017-01-25 13:08 | disposition home or self-care (01) | DRG 766 ==
LOC: H2EB 01-23 09:21 → H1EA 01-23 13:17
PROVIDERS: ADMIT Obstetrics & Gynecology; ATTEND Obstetrics & Gynecology
PROC: 10D00Z1 Extraction of Products of Conception, Low, Open Approach (ICD-10-PCS; principal; 2017-01-23)
DX: O34.211 Maternal care for low transverse scar from previous cesarean delivery (principal); Z37.0 Single live birth; Z3A.39 39 weeks gestation of pregnancy
CPT/HCPCS: 59025; 81001; 85025; 85027; 86850; 86900; 86901; 90715; C1765; J0690; J1885; J2274; J2590; J7120

== ENCOUNTER 2017-07-05 19:01 | Emergency (ER) | payer OTHER ==
[~2017-07-05] VITALS: Ht 165.1 cm; Wt 65.0 kg
[~2017-07-05 19:01] MED LIST changes: -FAMO1TAB37 PO; +IRONTAB5 PO; -PREN1CAP7 PO; -PROC2.5C RECTAL; -ZOLO50TA PO
[2017-07-05 19:03] VITALS: BP 145/64; PULSE 92; RESP 18; TEMP 98.5; O2SAT 99
[2017-07-05] MEDS ORDERED: BUTA1CAP PO (19:29)
[2017-07-05] MEDS ORDERED: ZOFR4TAB PO (19:29)
[2017-07-05] MEDS ORDERED: SODIUM CHLOR 0.9% 1000 ML INJ 1,000 ML IV ONE (19:42)
[2017-07-05] MEDS ORDERED: PROCHLORPERAZINE INJ 10 MG/2 ML VIAL IVP ONE (19:45)
[2017-07-05] MEDS ORDERED: diphenhydrAMINE HCL 50 MG/ML VIAL IVP ONE (19:45)
[2017-07-05] MEDS ORDERED: KETOROLAC TROMETHAMINE 30 MG/ML (IVP) VIAL IVP ONE (19:45)
--- NOTE | 2017-07-05 19:48 | PD ---
HPI Chief Complaint: Headache Time Seen by Provider: 19:32 Travel History International Travel<30 days: No Contact w/Intl Traveler<30days: No Traveled to known affect area: No History of Present Illness HPI 21-year-old female presents emergency department for evaluation of headache that started 5 days ago. Patient states the headache has been fairly constant in consistency and presentation. It is aching and presentation and bilateral frontal. She denies any injury, falls or traumas. Patient states and got slightly worse last night after she had sex and she ended up vomiting and having ringing in her ears at that time. Patient went to [facility] for evaluation. A CAT scan was performed at that time and the patient states she believes it was negative because she was discharged home. Patient has an 18- month-old and a 5-month-old baby at home. Patient has no major medical history. She did vomit once yesterday and once today. She denies any hematemesis. She does not take any daily medication but a couple months ago had a ParaGard IUD placed. Patient states she felt nauseated at this time and she is photophobic. There is no rigidity noted in her neck. She is a full range of motion of the neck is supple. No fever, chills, chest pain, shortness breath, malaise, abdominal pain, diarrhea. PFSH Past Medical History Immunizations Current: Yes Tetanus Vaccination: < 5 Years Influenza Vaccination: No ?: Unknown Social History Alcohol Use: No Tobacco Use: No Substance Use: No Allergies-Medications (Allergen,Severity, Reaction): Coded Allergies: metronidazole (Unverified Allergy, Severe, perfuse vomiting, AFFECTS GALLBLADDER, INTESTINES AND LIVER, 07/05/17) Reported Meds & Prescriptions Reported Meds & Active Scripts Active Ferralet (Multi-Vit/Iron-Folic Rpdr-M31-Edl C) 90-1-0.012-120 mg Tab 1 Tab PO DAILY Reported Fioricet (Ilqetpmjyv-Fvqgzupeyonuy-Qrauahnz) 50-300-40 Mg Cap 1 Cap PO Q4H PRN Zofran (Ondansetron HCl) 4 Mg Tab 4 Mg PO Q8HR PRN [Iron] 1 Tab PO DAILY Review of Systems Except as stated in HPI: all other systems reviewed are Neg HENT: Positive: Headaches Physical Exam Narrative GENERAL: Well-nourished well-developed 21-year-old female that is resting in a dark room on the stretcher in no acute respiratory distress. Nontoxic- appearing. SKIN: Focused skin assessment warm/dry. HEAD: Atraumatic. Normocephalic. EYES: Pupils equal and round. No scleral icterus. No injection or drainage. ENT: No nasal bleeding or discharge. Mucous membranes pink and moist. NECK: No rigidity noted, supple, full range of motion. Trachea midline. No JVD. CARDIOVASCULAR: Regular rate and rhythm. No murmur appreciated. RESPIRATORY: No accessory muscle use. Clear to auscultation. Breath sounds equal bilaterally. GASTROINTESTINAL: Abdomen soft, non-tender, nondistended. Hepatic and splenic margins not palpable. MUSCULOSKELETAL: No obvious deformities. No clubbing. No cyanosis. No edema. NEUROLOGICAL: Awake and alert. No obvious cranial nerve deficits. Motor grossly within normal limits. Normal speech. PSYCHIATRIC: Appropriate mood and affect; insight and judgment normal. Data Data Last Documented VS Vital Signs Date Time Temp Pulse Resp B/P (MAP) Pulse Ox O2 Delivery O2 Flow Rate FiO2 07/05/17 19:03 98.5 92 18 145/64 (91) 99 Room Air Orders Orders Ecg Monitoring (07/05/17 19:42) Iv Access Insert/Monitor (07/05/17 19:42) Ketorolac Inj (Toradol Inj) (07/05/17 19:45) Prochlorperazine Inj (Compazine Inj) (07/05/17 19:45) Diphenhydramine Inj (Benadryl Inj) (07/05/17 19:45) Sodium Chlor 0.9% 1000 Ml Inj (Ns 1000 M (07/05/17 19:42) MDM Medical Decision Making Medical Screen Exam Complete: Yes Emergency Medical Condition: Yes Differential Diagnosis Differential diagnoses include but not limited to migraine, headache, ICH, anxiety, concussion Narrative Course Hospital records obtained from [place] where the patient was evaluated yesterday for the same symptoms. CAT scan from yesterday was negative for any acute findings. Small round lucency on the right lateral ventricle atrium the most likely represents a benign entity was described. The patient was very concerned about this finding and went further evaluation or facility. Patient was given a migraine cocktail, 1 L normal saline IV bolus, 50 mg IV Benadryl, 10 mg IV Compazine, 30 mg IV Toradol. Patient reports full relief of symptoms. Patient thankful for care. Patient will be discharged home with instructions to follow-up with Dr. Samano, neurosurgeon for further evaluation of the benign lucency. Patient will be discharged at this time. Diagnosis Primary Impression: Headache Qualified Codes: R51 - Headache Referrals: Doug Samano MD Patient Instructions: Acute Headache (ED), General Instructions Additional Instructions: Please return to emergency department if your symptoms return or worsen. Follow up with your primary care provider. Continue to take Fioricet and Zofran as directed as needed for migraine or nausea. May follow up with Dr. Samano, neurosurgeon for further evaluation of right lateral ventricular small round lucency May take [id number] ibuprofen or Tylenol as needed for headache Stay hydrated, get enough rest, diet as tolerated. Disposition: 01 DISCHARGE HOME Condition: Stable Iram Mcneil Jul 05, 2017 19:48
== END 2017-07-05 22:47 | disposition home or self-care (01) ==
LOC: NEPE 19:01
DX: R51 Headache (principal); R11.10 Vomiting, unspecified; Z79.899 Other long term (current) drug therapy; Z88.8 Allergy status to other drugs, medicaments and biological substances
CPT/HCPCS: 96374; 96375; 99284; J0780; J1200; J1885; J7030